=== PATIENT | male | born 1960 | race Hispanic/Latino ===

== ENCOUNTER 2017-04-01 06:22 | Day surgery (SDC) | payer OTHER ==
[2017-03-27 08:13] VITALS: BMI 32.8
[2017-04-01] MEDS ORDERED: ceFAZolin IV 2 gm in Dextrose 0 GM/0 ML BAG IVPB ONE (07:22)
[2017-04-01] MEDS ORDERED: Bupivacaine HCl 0.25% PF (10 ml) Inj ONE (07:22)
[2017-04-01] MEDS ORDERED: Lidocaine 1% Inj (20ml) ONE (07:22)
[2017-04-01] MEDS ORDERED: ceFAZolin IV 2 gm in Dextrose 1 GM/50 ML BAG IVPB ONE (07:32)
[2017-04-01] MEDS ORDERED: Midazolam 2 MG/2 ML VIAL ONE (07:49)
[2017-04-01] MEDS ORDERED: Propofol 10 mg/ml Inj (20 ML) ONE (07:50)
[2017-04-01] MEDS ORDERED: Lidocaine Hydrochloride 5 ML INJ ONE (07:53)
[2017-04-01] MEDS ORDERED: Lactated Ringer's 1,000 ML IV ONE (08:00)
[2017-04-01] MEDS ORDERED: HYDROmorphone 0.5 mg/0.5 ml ISec IVP PRN (08:50)
[2017-04-01 11:24] VITALS: BP 121/90; PULSE 67; RESP 18; TEMP 97.5; O2SAT 97
--- NOTE | 2017-04-01 20:06 | OP ---
PROCEDURE DATE: 04/01/2017 PREOPERATIVE DIAGNOSIS: Multiple lipomas of left arm, left flank and primarily right arm. PROCEDURE CARRIED OUT: Excision of multiple lipomas. In particular, this is going to be one 3-cm lipoma of the right arm, four 2-cm lipomas of the right arm, 1-cm lipoma of the left arm and 1-cm lipoma of the left chest. DESCRIPTION OF PROCEDURE: The patient was given general anesthesia. The area was prepped and draped with Hibiclens. An incision was made directly over this. After obtaining hemostasis, the wound was closed with randall. Blood loss in the procedure was less than 10 mL. Operation carried out was excision of multiple lipomas. Richard Shaikh Jr., MD
== END 2017-04-01 10:38 | disposition home or self-care (01) ==
LOC: C.SDS 06:22
PROVIDERS: ATTEND Surgery Vascular Surgery
DX: D17.21 Benign lipomatous neoplasm of skin and subcutaneous tissue of right arm (principal); D17.22 Benign lipomatous neoplasm of skin and subcutaneous tissue of left arm; D17.1 Benign lipomatous neoplasm of skin and subcutaneous tissue of trunk
CPT/HCPCS: 11402; 11406; 88304; J0690; J1885; J2250; J2405; J2704; J2765; J3010; J7120